=== PATIENT | female | born 1970 | race Caucasian/White ===

== ENCOUNTER 2020-01-01 14:19 | Inpatient (IN) | payer OTHER ==
[~2020-01-01] VITALS: Ht 175.3 cm; Wt 74.8 kg
[2020-01-01] MEDS ORDERED: ROCALTROL0.25 MCG (15:10)
[2020-01-01] MEDS ORDERED: SYNTHROID75 MCG (15:10)
[2020-01-01] MEDS ORDERED: OMEPRAZOLE MAGN20 MG (15:10)
== END 2020-01-06 16:57 | disposition home or self-care (01) | DRG 737 ==
LOC: ER 14:19 → SURH 21:33 → OB/GYN 21:33 → SEC-K 22:13 → SURG 22:14 → OB/GYN 01-02 00:23
PROVIDERS: ADMIT Obstetrics & Gynecology; ATTEND Obstetrics & Gynecology
PROC: 0UB20ZZ Excision of Bilateral Ovaries, Open Approach (ICD-10-PCS; 2020-01-02)
PROC: 0DBU0ZZ Excision of Omentum, Open Approach (ICD-10-PCS; 2020-01-02)
PROC: 07BC0ZX Excision of Pelvis Lymphatic, Open Approach, Diagnostic (ICD-10-PCS; 2020-01-02)
PROC: 0UT90ZZ Resection of Uterus, Open Approach (ICD-10-PCS; principal; 2020-01-02 07:00)
DX: C56.2 Malignant neoplasm of left ovary (principal); C77.5 Secondary and unspecified malignant neoplasm of intrapelvic lymph nodes; R18.8 Other ascites; C56.1 Malignant neoplasm of right ovary; E03.9 Hypothyroidism, unspecified; R97.0 Elevated carcinoembryonic antigen [CEA]